=== PATIENT | male | born 1985 | race Caucasian/White ===

== ENCOUNTER 2018-10-18 18:14 | Emergency (ER) | payer OTHER ==
[2018-10-18] MEDS ORDERED: LIDOCAINE 1% INJ-PF (10 MG/ML) 30 ML SDV INJ ONE ×2 (19:14→19:25)
--- NOTE | 2018-10-18 19:17 | ER Document Report ---
ED Medical Screen (RME) - General Chief Complaint: Laceration Stated Complaint: LEG LACERATION Time Seen by Provider: 10/18/18 19:05 Mode of Arrival: Ambulatory Information source: Patient Notes: 33-year-old male presents emergency department for a laceration to the right lower extremity. Patient states that he was cutting down a tree with a chainsaw when it kicked back and cut him in the right lower extremity. Patient states that his tetanus is up-to-date. He states that the injury happened about 2 hours ago. I have greeted and performed a rapid initial assessment of this patient. A comprehensive ED assessment and evaluation of the patient, analysis of test results and completion of the medical decision making process will be conducted by additional ED providers. PHYSICAL EXAMINATION: GENERAL: Well-appearing, well-nourished and in no acute distress. HEAD: Atraumatic, normocephalic. EYES: Pupils equal round extraocular movements intact, conjunctiva are normal. ENT: Nares patent NECK: Normal range of motion LUNGS: No respiratory distress Musculoskeletal: Normal range of motion. 5cm laceration to the RLE. NEUROLOGICAL: Normal speech TRAVEL OUTSIDE OF THE [place] IN LAST 30 DAYS: No - Related Data Allergies/Adverse Reactions: No Known Allergies Allergy (Unverified 10/18/18 18:19) Past Medical History - Social History Chew tobacco use (# tins/day): No Frequency of alcohol use: Rare Drug Abuse: None Renal/ Medical History: Denies: Hx Peritoneal Dialysis Past Surgical History: Reports: Hx Orthopedic Surgery - left femur Physical Exam - Vital signs Vitals: Temp Pulse Resp BP Pulse Ox 99.1 F 87 18 119/75 100 10/18/18 18:49 10/18/18 18:49 10/18/18 18:49 10/18/18 18:49 10/18/18 18:49 Course - Vital Signs Vital signs: Temp Pulse Resp BP Pulse Ox 99.1 F 87 18 119/75 100 10/18/18 18:49 10/18/18 18:49 10/18/18 18:49 10/18/18 18:49 10/18/18 18:49
--- NOTE | 2018-10-18 19:29 | ER Document Report ---
ED General - General Chief Complaint: Laceration Stated Complaint: LEG LACERATION Time Seen by Provider: 10/18/18 19:05 Mode of Arrival: Ambulatory Notes: Patient is a 33-year-old male without chronic medical problems who presents with a laceration overlying his mid tibial surface on the right lower extremity. This occurred after he was cutting a log with a chain saw kicked back causing a superficial laceration over the affected area. Patient notes a dull, throbbing, aching pain. Nothing improves or worsens the pain. Tetanus is up-to-date. No history of similar injuries in the past. Has not seen his primary doctor regarding today's concerns. Denies any weakness or numbness. Able to ambulate without any difficulty. TRAVEL OUTSIDE OF THE [place] IN LAST 30 DAYS: No - Related Data Allergies/Adverse Reactions: No Known Allergies Allergy (Unverified 10/18/18 18:19) Past Medical History - General Information source: Patient - Social History Smoking Status: Current Every Day Smoker Chew tobacco use (# tins/day): No Frequency of alcohol use: Rare Drug Abuse: None Family History: Reviewed & Not Pertinent Patient has suicidal ideation: No Patient has homicidal ideation: No Renal/ Medical History: Denies: Hx Peritoneal Dialysis Past Surgical History: Reports: Hx Orthopedic Surgery - left femur Review of Systems - Review of Systems Notes: Constitutional: Negative for fever. Eyes: Negative for visual changes. ENT: Negative for facial injury Cardiovascular: Negative for chest injury. Respiratory: Negative for shortness of breath. Gastrointestinal: Negative for abdominal injury. Genitourinary: Negative for genital injury Musculoskeletal: Negative for back injury. Skin: Positive for laceration/abrasions. Neurological: Negative for head injury. Physical Exam - Vital signs Vitals: Temp Pulse Resp BP Pulse Ox 99.1 F 87 18 119/75 100 10/18/18 18:49 10/18/18 18:49 10/18/18 18:49 10/18/18 18:49 10/18/18 18:49 Interpretation: Normal Notes: PHYSICAL EXAMINATION: GENERAL: Well-appearing, well-nourished and in no acute distress. HEAD: Atraumatic, normocephalic. EYES: sclera anicteric, conjunctiva are normal. ENT: Moist mucous membranes. NECK: Normal range of motion LUNGS: Normal work of breathing HEART: 2+ radial pulses bilaterally, 2+ DP pulses bilaterally EXTREMITIES: no pitting or edema. No cyanosis. Normal dorsi and plantar flexion of the right foot. Ambulatory without difficulty. NEUROLOGICAL: No focal neurological deficits. Moves all extremities spontaneously and on command. PSYCH: Normal mood, normal affect. SKIN: Warm, Dry, normal turgor, 6 cm superficial laceration overlying the right mid tibial surface. Course - Re-evaluation Re-evalutation: 10/18/18 19:28 Presentation of a superficial 6 cm laceration over the right tibial surface without any additional injuries. Tetanus is already up-to-date. Wound was cleaned, irrigated, closed with a running stitch. Patient tolerated procedure well. No evidence of neurovascular injury. At this time will discharge with return precautions and follow-up recommendations. Verbal discharge instructions given a the bedside and opportunity for questions given. Medication warnings reviewed. Patient is in agreement with this plan and has verbalized understanding of return precautions and the need for primary care follow-up in the next 24-72 hours. - Vital Signs Vital signs: Temp Pulse Resp BP Pulse Ox 99.1 F 87 18 119/75 100 10/18/18 18:49 10/18/18 18:49 10/18/18 18:49 10/18/18 18:49 10/18/18 18:49 Procedures - Laceration/Wound Repair Right Lower Leg Wound length (cm): 6 Wound's Depth, Shape: Superficial Laceration pre-procedure: Sterile PPE donned Anesthetic type: 1% Lidocaine Volume Anesthetic (mLs): 4 Wound explored: Clean Irrigated w/ Saline (mLs): 500 Wound Debrided: Moderate Wound Repaired With: Sutures Suture Size/Type: 4:0 Number of Sutures: 1 - Continuous running stitch Layer Closure?: No Post-procedure wound care: Sterile dressing applied Post-procedure NV exam normal: Yes Complications: No Discharge - Discharge Clinical Impression: Laceration of right lower extremity Qualifiers: Encounter type: initial encounter Qualified Code(s): S81.811A - Laceration without foreign body, right lower leg, initial encounter Condition: Good Disposition: HOME, SELF-CARE Additional Instructions: Please return to your primary doctor, the ED, or an urgent care in 7 days for suture removal. Return immediately if you develop spreading redness around the wound, pus from the wound, worsening pain, or a fever of >100.4. Keep the area clean and dry. Wash gently with soap and water twice daily and cover with antibiotic ointment.
[2018-10-18 20:45] VITALS: BP 128/97
== END 2018-10-18 20:46 | disposition home or self-care (01) ==
LOC: ER 18:14
DX: S81.811A Laceration without foreign body, right lower leg, initial encounter (principal); W29.3XXA Contact with powered garden and outdoor hand tools and machinery, initial encounter; Y93.89 Activity, other specified; F17.200 Nicotine dependence, unspecified, uncomplicated
CPT/HCPCS: 99282; 12002; J3490